=== PATIENT | male | born 1970 | race Caucasian/White ===

== ENCOUNTER 2025-05-29 21:53 | Emergency (ER) | payer MEDICAID, SELFPAY ==
[2025-05-29 21:59] VITALS: PULSE 91; RESP 20; O2SAT 98; BMI 25.8
--- NOTE | 2025-05-29 21:59 | PD.EDEXREM ---
ED Extremity Problem RME/HPI General Chief complaint: Extremity Problem,Nontraumatic Stated complaint: LEG SWELLING Time Seen by Provider: 05/29/25 21:59 Arrival date/time: 05/29/25 21:53 RME / HPI RME / HPI Narrative: Dr. Lieberman?s Main ED Evaluation: 54yo male with a history of DVT (2 years ago) on Eliquis BIBA from home presents to the ED for a chief complaint of sudden onset sharp, stabbing right thigh pain x 1 hour [employer]. Patient reports associated numbness and swelling. Patient endorses experiencing similar symptoms when he was diagnosed with a DVT to the right calf. Patient notes he missed 5 days worth of his Eliquis a couple weeks ago. Patient denies any chest pain, shortness of breath, or any other associated symptoms. NKA. Related Data Home Medications ?Medication ?Instructions ?Recorded ?Confirmed apixaban 5 mg tablet (Eliquis) 5 mg PO BID 01/28/24 02/11/24 Allergies Allergy/AdvReac Type Severity Reaction Status Date / Time No Known Drug Allergies Allergy Verified 02/11/24 10:37 Review of Systems Review of Systems Systems Reviewed: All systems reviewed, normal except as documented ED Exam Narrative Physical exam: Generally patient is alert and in no obvious distress, heart regular rate and rhythm, lungs clear to auscultation equal bilaterally, abdomen soft bowel sounds present nondistended nontender, extremities show enlargement of the right lower extremity when compared to the left mostly distal to the knee. Patient has equal and strong dorsalis pedis pulses bilaterally. There is no discoloration to the right lower extremity. Course Quality Measures none Orders Category Date Time Status US venous doppler LE RT Stat Exams 05/29/25 21:59 Completed Vital Signs Vital signs: Vital Signs Temperature 97.8 F 05/29/25 22:03 Pulse Rate 117 H 05/29/25 22:03 Respiratory Rate 18 05/29/25 22:03 Blood Pressure 123/84 05/29/25 22:03 Pulse Oximetry (%) 97 05/29/25 22:03 Oxygen Delivery Method Room Air 05/29/25 22:03 Extremity Problem MDM Narrative MDM Narrative:: Scribe Attestation: 05/29/25 - Madison Horne am scribing for and in the presence of Dr. Lieberman. Venous Doppler ultrasound to the right lower extremity showed evidence for DVT from the femoral to popliteal veins. Patient has been off of his Eliquis recently but is now back on it at 5 mg twice a day. He is to continue that Eliquis. He denies any chest pain or shortness of breath. He is not tachycardic. He is not tachypneic. O2 saturation is 99% on room air. I do not suspect pulmonary embolism at this time. Patient data External records reviewed:: [facility] previous records (Per chart review, patient has no previous ED visits or admissions to this facility.) Clinical information provided by:: patient Social determinants that could affect healthcare access:: none Patient has the following chronic illnesses:: none How is presenting disease/condition affected by chronic disease/condition?: no chronic disease Evaluation data The following diagnostics were reviewed and interpreted by me:: radiology exam(s) Lab and/or radiology exams considered but not ordered:: none Interpretation Summary: [facility] Report Signed Patient: MARGARITO HOOD Record#: [id number] Birthdate: 1970 Age/Sex: 54 / M Location: [facility] Attending Dr: Ordering Physician: Liam Lieberman DO Date of Service: 05/29/25 Procedure(s): US venous doppler LE RT Accession Number(s): [id number] cc: Marlon Omalley MD; Liam Lieberman DO~ Examination: Duplex scan of the lower extremity, unilateral right Date and time of exam: May 29, 2025 2200 hours INDICATIONS: Right leg pain today, history DVT 2021 Technique: Duplex scan of the extremity veins using B-mode/grayscale imaging and Doppler spectral analysis and color flow Attention is directed to internal echogenicity, compression and augmentation involving these veins, color flow assessment, spectral analysis Findings: Major deep venous structures in the extremity demonstrate normal course and caliber. There is no evidence of deep vein thrombosis. Normal color flow and spectral analysis Impression: Positive for occlusive thrombus involving the right superficial femoral popliteal veins IMPRESSION: Positive for extensive DVT. Dictated By: Marlon Omalley MD Signed By: <Electronically signed by Marlon Omalley MD in [place]> 05/29/25 2227 Medications / Prescriptions Medications or Prescriptions considered but not ordered:: none Medication administrations:: none Consultations Consultation(s) initiated? (list below): No Diagnosis Extremity Problem Differential Diagnosis: other (See MDM) Most likely diagnosis given after review of the tests above:: see clinical impression below Admission Indicated Admission indicated?: not indicated Admission Request Was there a request for admission?: No Disposition Plan Disposition Plan: Discharge Discharge Attestation Discharge Attestation: The patient and all family members were given an opportunity to ask questions and understood the discharge instructions. Discharge instructions specifically effects, indications for sooner follow up or return to the emergency department, and the expected course of current diagnosis. Patient condition: Stable Discharge Plan Plan Patient Disposition: HOME (Self Care) Prescriptions/Referrals Prescriptions/Med Rec: No Action Eliquis 5 mg tablet 5 mg PO BID Problem List Clinical Impression: Deep vein thrombosis of lower extremity Patient/Caregiver Discharge Instructions Education Materials: ED Deep Vein Thrombosis (DVT) Additional Instructions: Continue the Eliquis. Follow-up with your doctor for further treatment and evaluation. Return for any chest pain or shortness of breath. Print Language: Norwegian Stand Alone Forms: Katty Award Info., Patient Portal Info Letter
[2025-05-29 22:03] VITALS: BP 123/84; PULSE 117; RESP 18; TEMP 36.6; O2SAT 97
[2025-05-29 22:55] VITALS: BP 125/67; PULSE 86; RESP 18; TEMP 36.7; O2SAT 99
== END 2025-05-29 22:56 | disposition home or self-care (01) ==
PROVIDERS: Emergency Provider Emergency Medicine
DX: I82.411 Acute embolism and thrombosis of right femoral vein (principal); Z79.01 Long term (current) use of anticoagulants
CPT/HCPCS: 93971; 99282